=== PATIENT | female | born 1985 | race Caucasian/White ===

== ENCOUNTER 2017-04-19 10:57 | Emergency (ER) | payer OTHER ==
[~2017-04-19] VITALS: Ht 165.1 cm; Wt 106.6 kg
[~2017-04-19 10:57] MED LIST: METR500T1 PO; PSEU60TA51 PO
[2017-04-19 11:11] VITALS: BP 148/91
[2017-04-19 11:30] VITALS: BP 122/75
== END 2017-04-19 11:30 | disposition home or self-care (01) ==
LOC: MED 10:57
DX: B35.3 Tinea pedis (principal); F17.210 Nicotine dependence, cigarettes, uncomplicated; Z79.899 Other long term (current) drug therapy
CPT/HCPCS: 99282

== ENCOUNTER 2018-10-22 13:38 | Emergency (ER) | payer OTHER ==
[~2018-10-22] VITALS: Ht 165.1 cm; Wt 146.1 kg
--- NOTE | 2018-10-22 14:24 | NUR ---
PT AMBULATED TO ER BED 2
[2018-10-22 14:26] VITALS: BP 104/80
--- NOTE | 2018-10-22 14:35 | NUR ---
pt drove self from home for 3 day old coughs/sneeze,that worsened today.awaits er md/pa-c evaluations/assessments.laure hylton.
--- NOTE | 2018-10-22 15:25 | NUR ---
xray in progress.pt tolerated procedures with no incidents.aao,nad.still has cough fits at times.awaits test results,reevaluations.
--- NOTE | 2018-10-22 16:00 | NUR ---
ambulated to/from bathroom on her own with no problems.awaits reevaluations.laure hylton.
--- NOTE | 2018-10-22 16:29 | NUR ---
pt tolerated procedures with no incidents.upon er md reevaluations pt d/c'ed with rx's,instructions and to follow up with pmd/clinic for checkup further evaluations.ambulates on her own and states she understands instructions and will comply.return to nearest appropriate medical facility if conditions owrsens/emergencies.laure hylton.
[2018-10-22 16:31] VITALS: BP 154/87
== END 2018-10-22 16:29 | disposition home or self-care (01) ==
LOC: MED 13:38
DX: J11.1 Influenza due to unidentified influenza virus with other respiratory manifestations (principal); J44.9 Chronic obstructive pulmonary disease, unspecified
CPT/HCPCS: 71045; 99283; Q0092

== ENCOUNTER 2019-07-10 09:59 | Emergency (ER) | payer MEDICAID, OTHER ==
[~2019-07-10] VITALS: Ht 165.1 cm; Wt 125.6 kg
--- NOTE | 2019-07-10 10:03 | NUR ---
PATIENT AMBULATED STEADY GAIT TO BED 7
[2019-07-10 10:05] VITALS: BP 114/59
--- NOTE | 2019-07-10 10:11 | NUR ---
34/F BIB SELF C/O CONSTANT MID CHEST PRESSURE X LAST NIGHT. C/O NUMBNESS TO PTS L ARM AND NECK X 11 DAYS. DENIES COUGH OR DRUG ABUSE. ADMITS TO SMOKING CIGARRETTES HALF A PACK A DAY. PMH- COPD, FATIGUE. AAOX4 WITH EVEN AND STEADY GAIT; PATIENT STATES PAIN OF 8/10 AT THIS TIME. PATIENT POSITIONED FOR COMFORT; HOB ELEVATED; BEDRAILS UP X1; BED DOWN. ER MD MADE AWARE OF PT STATUS.
--- NOTE | 2019-07-10 10:27 | NUR ---
Patient being evaluated by DR BRUMFIELD at bedside.
[2019-07-10] MEDS ORDERED: ASPIRIN 325 MG TAB PO ONE (10:35)
[2019-07-10 11:04] LABS: BASOPHILS % (AUTO) 0.5 % (0.0-2.0); EOSINOPHILS # (AUTO) 0.1 K/uL (0-0.4); EOSINOPHILS % (AUTO) 1.2 % (0.0-4.0); HEMATOCRIT 38.5 % (36-48); HEMOGLOBIN 12.9 g/dL (12.0-16.0); LYMPHOCYTES # (AUTO) 1.4 K/uL (2.5-16.5); LYMPHOCYTES % (AUTO) 24.3 % (20.5-51.1); MEAN CORPUSCULAR HEMOGLOBIN 31 pg (27-31); MEAN CORPUSCULAR HGB CONC 34 g/dL (33-37); MEAN CORPUSCULAR VOLUME 93.1 fL (80-94); MONOCYTES # (AUTO) 0.3 K/uL (0.8-1.0); MONOCYTES % (AUTO) 4.4 % (1.7-9.3); NEUTROPHILS % (AUTO) 69.6 % (42.2-75.2); PLATELET COUNT (AUTO) 205 K/uL (140-450); RED BLOOD CELL COUNT(AUTO) 4.14 MIL/uL (4.20-5.40); RED CELL DISTRIBUTION WIDTH 14.7 % (11.6-13.7); WHITE BLOOD COUNT (AUTO) 5.7 K/uL (4.8-10.8)
[2019-07-10 11:17] LABS: CARBON DIOXIDE 27.8 mmol/L (21-32); CREATININE 0.7 mg/dL (0.6-1.3); POTASSIUM 3.8 mmol/L (3.5-5.1)
[2019-07-10 11:30] LABS: ALBUMIN 3.4 g/dL (3.4-5.0); TOTAL BILIRUBIN 0.3 mg/dL (0.0-1.0)
--- NOTE | 2019-07-10 11:35 | NUR ---
COVERING PRIMARY RN FOR LUNCH RELIEF, PT C/O L SIDED NUMBESS. DR BRUMFIELD AWARE. ORDERS FOR 1MG ATIVAN PO RECEIVED.
[2019-07-10] MEDS ORDERED: LORazepam 1 MG TAB PO ONE (11:45)
[2019-07-10 12:02] VITALS: BP 132/72
--- NOTE | 2019-07-10 12:03 | NUR ---
Patient discharged with v/s stable. Written and verbal after care instructions given and explained. Patient alert, oriented and verbalized understanding of instructions. Ambulatory with steady gait. All questions addressed prior to discharge. ID band removed. Patient advised to follow up with PMD. Rx of ATARAX given. Patient educated on indication of medication including possible reaction and side effects. Opportunity to ask questions provided and answered. IN LOBBY TO DRIVE PATIENT HOME. EDUCATED PT TO NOT DRIVE FOR AT LEAST 12 HRS.
== END 2019-07-10 12:03 | disposition home or self-care (01) ==
LOC: MED 09:59
DX: F41.9 Anxiety disorder, unspecified (principal); F17.210 Nicotine dependence, cigarettes, uncomplicated; J44.9 Chronic obstructive pulmonary disease, unspecified; Z72.0 Tobacco use
CPT/HCPCS: 36415; 71045; 80053; 81002; 81025; 84484; 85025; 93005; 99284; Q0092

== ENCOUNTER 2019-11-12 19:09 | Emergency (ER) | payer MEDICAID, OTHER ==
[~2019-11-12] VITALS: Ht 165.1 cm; Wt 124.7 kg
[2019-11-12 19:13] VITALS: BP 143/86
[2019-11-12 19:33] VITALS: BP 143/86
== END 2019-11-12 19:33 | disposition home or self-care (01) ==
LOC: MED 19:09
DX: H60.92 Unspecified otitis externa, left ear (principal); J44.9 Chronic obstructive pulmonary disease, unspecified; F17.210 Nicotine dependence, cigarettes, uncomplicated
CPT/HCPCS: 99283

== ENCOUNTER 2020-07-09 13:44 | Emergency (ER) | payer OTHER ==
[~2020-07-09] VITALS: Ht 165.1 cm; Wt 116.6 kg
[2020-07-09 14:44] VITALS: BP 150/57
--- NOTE | 2020-07-09 15:48 | NUR ---
PATIENT LEFT WITHOUT BEING SEEN BY DR. Corea. NO FURTHER CARE PROVIDED FOR PATIENT.
== END 2020-07-09 15:48 | disposition left against medical advice (07) ==
LOC: MED 13:44
DX: M54.9 Dorsalgia, unspecified (principal); M25.511 Pain in right shoulder; Z53.21 Procedure and treatment not carried out due to patient leaving prior to being seen by health care provider

== ENCOUNTER 2021-01-29 17:09 | Emergency (ER) | payer OTHER ==
[~2021-01-29] VITALS: Ht 165.1 cm; Wt 101.2 kg
[2021-01-29 17:16] VITALS: BP 73/45
[2021-01-29] MEDS ORDERED: traMADol 50 MG TAB PO ONE (17:30)
--- NOTE | 2021-01-29 17:40 | NUR ---
AMBULATED PT TO RM 7
--- NOTE | 2021-01-29 17:47 | NUR ---
PATIENT AMBULATED TO RESTROOM FOR COLLECTION OF URINE
[2021-01-29] MEDS ORDERED: IBUP-2218 PO (17:52)
[2021-01-29 18:01] VITALS: BP 139/80
== END 2021-01-29 18:01 | disposition home or self-care (01) ==
LOC: MED 17:09
DX: M54.5 Low back pain (principal); G89.29 Other chronic pain; J44.9 Chronic obstructive pulmonary disease, unspecified
CPT/HCPCS: 99283

== ENCOUNTER 2021-02-23 11:43 | Emergency (ER) | payer OTHER ==
[~2021-02-23] VITALS: Ht 162.6 cm; Wt 86.2 kg
[~2021-02-23 11:43] MED LIST changes: +IBUP-2218 PO; -METR500T1 PO; -PSEU60TA51 PO
--- NOTE | 2021-02-23 11:50 | NUR ---
moriah YANCEY via gurney to bed 08.
[2021-02-23 11:56] VITALS: BP 156/75
--- NOTE | 2021-02-23 12:05 | NUR ---
35 Y/O F BIBA, PT WAS FOUND SLEEPING ON FRONT LAWN, PT STATES SHE HAS BEEN DRINKING ALCOHOL ".12 ". PT IS DIAPHORETIC, A&OX3 TO NAME, LOCATION, AND TIME. PT SPEECH IS SLURRED, IS NOT ABLE TO AMBULATE WITHOUT ASSIST. A&OX4. EQUAL CHEST RISE AND FALL NOTED. NO LABORED BREATHING NOTED. BED IN LOWEST POSITION. SIDERAIL X2 UP. PMH: EOTH USE, ASTHMA, COPD NKA MED: DENIES
--- NOTE | 2021-02-23 12:08 | NUR ---
PT TOOK OFF GOWN AND MONITORING EQUIPEMENT AND RAN TO RESTROOM TOPLESS.
[2021-02-23 13:30] VITALS: BP 138/71
--- NOTE | 2021-02-23 13:43 | NUR ---
PT SLEEPING WITH EYES CLOSED. PT VITALS TAKEN, BUT UNABLE TO TAKEN BP DUE TO PT SLEEPING. BED IN LOWEST POSITION WITH SIDERAILS X2 UP AND LOCKED. WILL CONTINUE TO MONITOR PT
--- NOTE | 2021-02-23 14:30 | NUR ---
Patient discharged with v/s stable. Written and verbal after care instructions about alcohol use disorder given and explained. Patient verbalized understanding. Ambulatory with steady gait. All questions addressed prior to discharge. Advised to follow up with PMD.
== END 2021-02-23 14:30 | disposition home or self-care (01) ==
LOC: MED 11:43
DX: F10.129 Alcohol abuse with intoxication, unspecified (principal); J44.9 Chronic obstructive pulmonary disease, unspecified; Y90.9 Presence of alcohol in blood, level not specified
CPT/HCPCS: 99283

== ENCOUNTER 2021-08-17 12:24 | Emergency (ER) | payer OTHER ==
[~2021-08-17] VITALS: Ht 165.1 cm; Wt 119.7 kg
[2021-08-17 12:42] VITALS: BP 158/119
[2021-08-17] MEDS ORDERED: NAPR-54 PO (13:29)
--- NOTE | 2021-08-17 13:46 | NUR ---
NO COMPLETE ASSESSMENT NEEDED, NO NURSING INTERVENTIONS NEEDED.
[2021-08-17 13:47] VITALS: BP 138/86
--- NOTE | 2021-08-17 13:47 | NUR ---
Patient discharged with v/s stable. Written and verbal after care instructions given FOR HEEL SPUR and explained. Patient alert, oriented and verbalized understanding of instructions. Ambulatory with steady gait. All questions addressed prior to discharge. ID band removed. Patient advised to follow up with PMD. Rx of NAPROXEN given. Patient educated on indication of medication including possible reaction and side effects. Opportunity to ask questions provided and answered.
== END 2021-08-17 13:47 | disposition home or self-care (01) ==
LOC: MED 12:24
DX: M77.8 Other enthesopathies, not elsewhere classified (principal); J44.9 Chronic obstructive pulmonary disease, unspecified; Z79.899 Other long term (current) drug therapy
CPT/HCPCS: 73630; 99283

== ENCOUNTER 2021-09-10 07:28 | Emergency (ER) | payer OTHER ==
[~2021-09-10] VITALS: Ht 165.1 cm; Wt 117.0 kg
[~2021-09-10 07:28] MED LIST changes: +NAPR-54 PO
[2021-09-10 07:38] VITALS: BP 144/78
[2021-09-10] MEDS ORDERED: KETOROLAC 15 MG/ML VIAL IM ONE (07:55)
--- NOTE | 2021-09-10 08:01 | NUR ---
36/F BIB SELF WITH C/O RIGHT FOOT PAIN X1 MONTH. DENIES RECENT INJURY OR TRAUMA, STATES "I WORK ALOT." PATIENT DENIES TAKING ANYTHING FOR PAIN PRIOR TO ARRIVAL TO ED, NO DEFORMITY OR SWELLING NOTED
[2021-09-10 08:25] VITALS: BP 144/78
--- NOTE | 2021-09-10 08:25 | NUR ---
Patient discharged with v/s stable. Written and verbal after care instructions ABOUT FOOT PAIN given and explained. Patient verbalized understanding. Ambulatory with . All questions addressed prior to discharge. Advised to follow up with PMD.
== END 2021-09-10 08:25 | disposition home or self-care (01) ==
LOC: MED 07:28
DX: G89.29 Other chronic pain (principal); M79.671 Pain in right foot; J44.9 Chronic obstructive pulmonary disease, unspecified; F17.200 Nicotine dependence, unspecified, uncomplicated; Z79.899 Other long term (current) drug therapy; Z98.890 Other specified postprocedural states
CPT/HCPCS: 96372; 99283; J1885

== ENCOUNTER 2021-10-15 14:45 | Emergency (ER) | payer OTHER ==
[~2021-10-15] VITALS: Ht 165.1 cm; Wt 122.0 kg
[2021-10-15 15:01] VITALS: BP 136/77
[2021-10-15] MEDS ORDERED: TRAM50TA1 PO (15:25)
--- NOTE | 2021-10-15 15:35 | NUR ---
36/F PRESENTS TO ED WITH C/O RIGHT FOOT PAIN. STATES SHE WAS DX HERE WITH BONE SPURS LAST MONTH AND IS AWAITING TO SEE ORTHO NEXT MONTH BUT STATES PAIN IS WORSENING. REPORTS TAKING ALEVE WITH NO RELIEF, PATIENT AMBULATORY UPON ARRIVAL TO ED.
[2021-10-15 15:44] VITALS: BP 136/77
--- NOTE | 2021-10-15 15:44 | NUR ---
Patient discharged with v/s stable. Written and verbal after care instructions ABOUT HEEL SPUR given and explained. Patient alert, oriented and verbalized understanding of instructions. Ambulatory with steady gait. All questions addressed prior to discharge. ID band removed. Patient advised to follow up with PMD. Rx of ULTRAM given.
== END 2021-10-15 15:44 | disposition home or self-care (01) ==
LOC: MED 14:45
DX: M77.9 Enthesopathy, unspecified (principal); M79.671 Pain in right foot; J44.9 Chronic obstructive pulmonary disease, unspecified; Z79.899 Other long term (current) drug therapy
CPT/HCPCS: 99283

== ENCOUNTER 2021-11-28 15:05 | Emergency (ER) | payer OTHER ==
[~2021-11-28] VITALS: Ht 165.1 cm; Wt 122.5 kg
[~2021-11-28 15:05] MED LIST changes: +TRAM50TA1 PO
[2021-11-28 15:35] VITALS: BP 164/101
--- NOTE | 2021-11-28 15:53 | NUR ---
36 Y/O FEMALE BIB SELF, C/O SOB, STATED THEY TOOK THEIR INHALER BUT IT NEVER WORKS. LUNG SOUNDS CLEAR, NOTED WITH PRODUCTIVE COUGH PRODUCING A WHITISH EXUDATE. NKA PMH:COPD, ASTHMA
--- NOTE | 2021-11-28 15:53 | NUR ---
DR BURGOS AT BEDSIDE FOR EVAL
--- NOTE | 2021-11-28 15:53 | NUR ---
GIVEN APPLE JUICE AND CRACKERS, BLANKET FOR WARMTH
[2021-11-28] MEDS ORDERED: ALBUTEROL 0.083% 2.5 MG/3 ML NEBU INH ONE (16:00)
[2021-11-28] MEDS ORDERED: NACL 0.9% 1,000 ML IV ONE (16:00)
[2021-11-28] MEDS ORDERED: DEXAMETHASONE 10 MG/ML VIAL IVP ONE (16:00)
[2021-11-28 16:49] LABS: BASOPHILS # (AUTO) 0.1 K/uL (0.00-0.22); BASOPHILS % (AUTO) 1.2 % (0.0-2.0); EOSINOPHILS # (AUTO) 0.1 K/uL (0-0.4); EOSINOPHILS % (AUTO) 1.7 % (0.0-4.0); HEMATOCRIT 38.6 % (36-48); LYMPHOCYTES # (AUTO) 2.1 K/uL (2.5-16.5); LYMPHOCYTES % (AUTO) 30.9 % (20.5-51.1); MEAN CORPUSCULAR HEMOGLOBIN 32 pg (27-31); MEAN CORPUSCULAR HGB CONC 34 g/dL (33-37); MEAN CORPUSCULAR VOLUME 93.8 fL (80-94); MONOCYTES # (AUTO) 0.3 K/uL (0.8-1.0); MONOCYTES % (AUTO) 5.1 % (1.7-9.3); NEUTROPHILS # (AUTO) 4.1 K/uL (1.8-7.7); NEUTROPHILS % (AUTO) 61.1 % (42.2-75.2); PLATELET COUNT (AUTO) 222 K/uL (140-450); RED BLOOD CELL COUNT(AUTO) 4.12 MIL/uL (4.20-5.40); RED CELL DISTRIBUTION WIDTH 13.3 % (11.6-13.7); WHITE BLOOD COUNT (AUTO) 6.7 K/uL (4.8-10.8)
[2021-11-28 17:11] LABS: ALBUMIN 3.4 g/dL (3.4-5.0); ANION GAP 10.3 (8-16); CARBON DIOXIDE 29.5 mmol/L (21-32); CREATININE 1.1 mg/dL (0.6-1.3); POTASSIUM 3.8 mmol/L (3.5-5.1); TOTAL BILIRUBIN 0.2 mg/dL (0.0-1.0)
--- NOTE | 2021-11-28 17:12 | NUR ---
RAD AT BEDSIDE
[2021-11-28 17:43] VITALS: BP 107/60
[2021-11-28] MEDS ORDERED: ROBAC PO (17:47)
--- NOTE | 2021-11-28 17:55 | NUR ---
Patient discharged with v/s stable. Written and verbal after care instructions ABOUT ASTHMA/COPD given and explained. Patient alert, oriented and verbalized understanding of instructions. Ambulatory with steady gait. All questions addressed prior to discharge. ID band removed. Patient advised to follow up with PMD. Rx of GUAIFENESSIN-CODEINE given. Patient educated on indication of medication including possible reaction and side effects. Opportunity to ask questions provided and answered.
== END 2021-11-28 17:55 | disposition home or self-care (01) ==
LOC: MED 15:05
DX: J44.1 Chronic obstructive pulmonary disease with (acute) exacerbation (principal)
CPT/HCPCS: 36415; 71045; 80053; 85025; 94640; 96361; 96374; 99284; J1100; J7030; J7613; Q0092

== ENCOUNTER 2022-02-15 09:01 | Emergency (ER) | payer OTHER ==
[~2022-02-15] VITALS: Ht 165.1 cm; Wt 122.0 kg
[~2022-02-15 09:01] MED LIST changes: +ROBAC PO
[2022-02-15 09:07] VITALS: BP 86/63
--- NOTE | 2022-02-15 09:15 | NUR ---
36 Y/O FEMALE C/O OF COUGH, RUNNY NOSE, BODY ACHES X3DAYS. OTHER SON AT HOME SICK WITH SIMILAR SYMPTOMS. MOM HAS BEEN USING INHALER AT HOME TO HELP WITH HER COUGH. DENIES SOB, CHEST PAIN AND N/V/D. A&OX4, SKIN INTACT, NO SIGNS OF RESPIRATORY DISTRESS AT THIS TIME, VITALS WNL FOR PT AND STEADY GAIT. NKA PMH: COPD, ASTHMA
[2022-02-15] MEDS ORDERED: IBUP-2213 PO (11:08)
[2022-02-15] MEDS ORDERED: KETOROLAC 30 MG/ML VIAL IM ONE (11:10)
[2022-02-15] MEDS ORDERED: ALBU0.0912 IH (11:12)
[2022-02-15] MEDS ORDERED: ATRMDI INH (11:12)
[2022-02-15 11:57] VITALS: BP 143/78
--- NOTE | 2022-02-15 12:00 | NUR ---
Patient discharged with v/s stable. Written and verbal after care instructions given and explained. Patient alert, oriented and verbalized understanding of instructions. Ambulatory with steady gait. All questions addressed prior to discharge. ID band removed. Patient advised to follow up with PMD. Rx of IBUPROFEN, ATROVENT HFA MDI, AND PROVENTIL HFA MDI given. Patient educated on indication of medication including possible reaction and side effects. Opportunity to ask questions provided and answered.
== END 2022-02-15 12:00 | disposition home or self-care (01) ==
LOC: MED 09:01
DX: U07.1 COVID-19 (principal); J45.909 Unspecified asthma, uncomplicated; J44.9 Chronic obstructive pulmonary disease, unspecified
CPT/HCPCS: 87426; 87804; 96372; 99283; J1885

== ENCOUNTER 2022-12-04 20:10 | Emergency (ER) | payer OTHER ==
[~2022-12-04] VITALS: Ht 165.1 cm; Wt 106.1 kg
[~2022-12-04 20:10] MED LIST changes: +ALBU0.0912 IH; +ATRMDI INH; +IBUP-2213 PO; +TRAM-748 PO; -TRAM50TA1 PO
[2022-12-04 20:16] VITALS: BP 143/68
--- NOTE | 2022-12-04 20:16 | NUR ---
to bed ambulatory
--- NOTE | 2022-12-04 20:18 | NUR ---
Patient BIB by friend from home. C/O chest pain x today. Patient reported, had spider bite, then chest pain, back pain, abdominal pain. Patient resented restless, moving around and yelling for help. PMHx: Asthma, COPD
--- NOTE | 2022-12-04 20:28 | NUR ---
Dr. Lima examining patient.
[2022-12-04] MEDS ORDERED: LORazepam 2 MG/ML VIAL IM ONE (20:35)
[2022-12-04 20:49] LABS: BASOPHILS % (AUTO) 0.5 % (0.0-2.0); EOSINOPHILS # (AUTO) 0.2 K/uL (0-0.4); EOSINOPHILS % (AUTO) 1.7 % (0.0-4.0); HEMATOCRIT 39.6 % (36-48); HEMOGLOBIN 13.8 g/dL (12.0-16.0); LYMPHOCYTES # (AUTO) 1.5 K/uL (2.5-16.5); MEAN CORPUSCULAR HEMOGLOBIN 32 pg (27-31); MEAN CORPUSCULAR HGB CONC 35 g/dL (33-37); MEAN CORPUSCULAR VOLUME 90.8 fL (80-94); MONOCYTES # (AUTO) 0.3 K/uL (0.8-1.0); MONOCYTES % (AUTO) 3.6 % (1.7-9.3); NEUTROPHILS # (AUTO) 6.8 K/uL (1.8-7.7); NEUTROPHILS % (AUTO) 77.2 % (42.2-75.2); PLATELET COUNT (AUTO) 229 K/uL (140-450); RED BLOOD CELL COUNT(AUTO) 4.37 MIL/uL (4.20-5.40); RED CELL DISTRIBUTION WIDTH 13.3 % (11.6-13.7); WHITE BLOOD COUNT (AUTO) 8.8 K/uL (4.8-10.8)
[2022-12-04 21:06] LABS: ALBUMIN 3.6 g/dL (3.4-5.0); CARBON DIOXIDE 27.5 mmol/L (21-32); CREATININE 0.8 mg/dL (0.6-1.3); POTASSIUM 3.5 mmol/L (3.5-5.1); TOTAL BILIRUBIN 0.3 mg/dL (0.0-1.0)
[2022-12-04] MEDS ORDERED: ONDANSETRON 4 MG/2 ML VIAL IM ONE (21:15)
--- NOTE | 2022-12-04 21:17 | NUR ---
Patient screaming and states " I have back pain, help me , help me", Dr. Lima notified.
[2022-12-04] MEDS ORDERED: HALOPERIDOL IM 5 MG/ML VIAL IM ONE (21:20)
[2022-12-04] MEDS ORDERED: HALOPERIDOL IM 5 MG/ML VIAL ONE (21:23)
--- NOTE | 2022-12-04 21:44 | NUR ---
X-Ray at bedside.
--- NOTE | 2022-12-04 21:59 | NUR ---
Patient appears to be resting comfortably in bed. Vital Signs within normal limits. Respirations even and unlabored.
[2022-12-04 22:28] LABS: ACETAMINOPHEN < 0.5 ug/ml (10-30); SALICYLATE < 2.8 mg/dL (2.8-20.0)
--- NOTE | 2022-12-04 22:57 | NUR ---
Patient appears to be resting comfortably in bed. Vital Signs within normal limits. Respirations even and unlabored.
--- NOTE | 2022-12-05 00:58 | NUR ---
Patient closed her eyes, Patient appears to be resting comfortably in bed.
--- NOTE | 2022-12-05 03:11 | NUR ---
Patient closed her eyes, Patient appears to be resting comfortably in bed.
--- NOTE | 2022-12-05 04:29 | NUR ---
Dr. Potts examining patient.
[2022-12-05 05:02] VITALS: BP 155/76
--- NOTE | 2022-12-05 05:02 | NUR ---
Patient discharged with v/s stable. Written and verbal after care instructions given and explained. Patient verbalized understanding. Ambulatory with steady gait. All questions addressed prior to discharge. Advised to follow up with PMD.
--- NOTE | 2022-12-05 05:04 | NUR ---
Called warehouse foreman for [employer].
== END 2022-12-05 05:02 | disposition home or self-care (01) ==
LOC: MED 20:10
DX: R41.82 Altered mental status, unspecified (principal); R07.9 Chest pain, unspecified; J45.909 Unspecified asthma, uncomplicated; J44.9 Chronic obstructive pulmonary disease, unspecified; Z79.899 Other long term (current) drug therapy
CPT/HCPCS: 36415; 71045; 80053; 83880; 84484; 85025; 93005; 96372; 99285; G0480; G0482; J1630; J2060; J2405; Q0092

== ENCOUNTER 2022-12-25 12:02 | Emergency (ER) | payer OTHER ==
[~2022-12-25] VITALS: Ht 165.1 cm; Wt 110.4 kg
[2022-12-25 12:11] VITALS: BP 121/75
[2022-12-25] MEDS ORDERED: BACTO TP (12:41)
[2022-12-25] MEDS ORDERED: IBUP-2213 PO (12:41)
[2022-12-25] MEDS ORDERED: SULF-59 PO (12:49)
[2022-12-25 13:07] VITALS: BP 121/75
--- NOTE | 2022-12-25 13:07 | NUR ---
Patient discharged with v/s stable. Written and verbal after care instructions given and explained. Patient alert, oriented and verbalized understanding of instructions. Ambulatory with steady gait. All questions addressed prior to discharge. ID band removed. Patient advised to follow up with PMD. Rx of IBUPROFEN, BACTROBAN (SENT) given. Patient educated on indication of medication including possible reaction and side effects. Opportunity to ask questions provided and answered.
== END 2022-12-25 13:07 | disposition home or self-care (01) ==
LOC: MED 12:02
DX: S31.139A Puncture wound of abdominal wall without foreign body, unspecified quadrant without penetration into peritoneal cavity, initial encounter (principal); J45.909 Unspecified asthma, uncomplicated; J44.9 Chronic obstructive pulmonary disease, unspecified; F17.210 Nicotine dependence, cigarettes, uncomplicated; Z72.89 Other problems related to lifestyle; W57.XXXA Bitten or stung by nonvenomous insect and other nonvenomous arthropods, initial encounter; Y93.89 Activity, other specified; Y92.89 Other specified places as the place of occurrence of the external cause; Y99.8 Other external cause status
CPT/HCPCS: 99283

== ENCOUNTER 2023-05-23 17:04 | Emergency (ER) | payer OTHER ==
[~2023-05-23] VITALS: Ht 165.1 cm; Wt 110.7 kg
[~2023-05-23 17:04] MED LIST changes: +BACTO TP; +SULF-59 PO
[2023-05-23 18:15] VITALS: BP 135/66; PULSE 77; RESP 22; TEMP 97; O2SAT 100
[2023-05-23 19:16] LABS: BASOPHILS # (AUTO) 0.1 K/uL (0.00-0.22); BASOPHILS % (AUTO) 0.9 % (0.0-2.0); EOSINOPHILS # (AUTO) 0.2 K/uL (0-0.4); EOSINOPHILS % (AUTO) 2.4 % (0.0-4.0); HEMATOCRIT 38.4 % (36-48); HEMOGLOBIN 13.1 g/dL (12.0-16.0); LYMPHOCYTES # (AUTO) 1.6 K/uL (2.5-16.5); LYMPHOCYTES % (AUTO) 22.2 % (20.5-51.1); MEAN CORPUSCULAR HEMOGLOBIN 32 pg (27-31); MEAN CORPUSCULAR HGB CONC 34 g/dL (33-37); MEAN CORPUSCULAR VOLUME 93.5 fL (80-94); MONOCYTES # (AUTO) 0.2 K/uL (0.8-1.0); MONOCYTES % (AUTO) 3.3 % (1.7-9.3); NEUTROPHILS # (AUTO) 5.2 K/uL (1.8-7.7); NEUTROPHILS % (AUTO) 71.2 % (42.2-75.2); PLATELET COUNT (AUTO) 220 K/uL (140-450); RED CELL DISTRIBUTION WIDTH 13.6 % (11.6-13.7); WHITE BLOOD COUNT (AUTO) 7.2 K/uL (4.8-10.8)
[2023-05-23 19:29] LABS: ALBUMIN 3.9 g/dL (3.4-5.0); ANION GAP 12.2 (8-16); CALCIUM 8.7 mg/dL (8.5-10.1); CARBON DIOXIDE 29.6 mmol/L (21-32); CREATININE 0.8 mg/dL (0.6-1.3); POTASSIUM 3.8 mmol/L (3.5-5.1); TOTAL BILIRUBIN 0.2 mg/dL (0.0-1.0); TOTAL PROTEIN, SERUM 7.4 g/dL (6.4-8.2)
[2023-05-23 19:46] LABS: APPEARANCE,URINE CLEAR (CLEAR); BILIRUBIN,URINE NEGATIVE (NEGATIVE); BLOOD, URINE NEGATIVE (NEGATIVE); COLOR,URINE YELLOW (YELLOW); LEUKOCYTE ESTERASE ,URINE NEGATIVE (NEGATIVE); NITRITE, URINE NEGATIVE (NEGATIVE); PROTEIN,URINE NEGATIVE (NEGATIVE); UGLUCOSE NEGATIVE (NEGATIVE); UROBILINOGEN,URINE 0.2 EU/dL (0.2 - 1)
[2023-05-23] MEDS ORDERED: ACET-10509 PO (20:26)
[2023-05-23 21:10] VITALS: BP 135/66; PULSE 77; RESP 22; TEMP 97; O2SAT 100
[2023-05-23] MEDS ORDERED: NEBU1EAC30 MC (22:09)
[2023-05-23] MEDS ORDERED: PRON INH (22:09)
== END 2023-05-23 21:10 | disposition home or self-care (01) ==
LOC: MED 17:04
DX: R10.9 Unspecified abdominal pain (principal); N93.9 Abnormal uterine and vaginal bleeding, unspecified; J44.9 Chronic obstructive pulmonary disease, unspecified; Z79.899 Other long term (current) drug therapy; Z79.2 Long term (current) use of antibiotics; Z79.1 Long term (current) use of non-steroidal anti-inflammatories (NSAID)
CPT/HCPCS: 36415; 80053; 81003; 81025; 83690; 85025; 99283

== ENCOUNTER 2023-05-23 21:43 | Emergency (ER) | payer OTHER ==
[~2023-05-23 21:43] MED LIST changes: +ACET-10509 PO
[2023-05-23] MEDS ORDERED: NEBU1EAC30 MC (22:09)
[2023-05-23] MEDS ORDERED: PRON INH (22:09)
== END 2023-05-23 22:00 | disposition left against medical advice (07) ==
LOC: MED 21:43
DX: Z53.21 Procedure and treatment not carried out due to patient leaving prior to being seen by health care provider (principal)

== ENCOUNTER 2023-12-17 18:03 | Emergency (ER) | payer OTHER ==
[~2023-12-17] VITALS: Ht 165.1 cm; Wt 104.3 kg
[~2023-12-17 18:03] MED LIST changes: +NAPR-337 PO; -NAPR-54 PO; +NEBU1EAC30 MC; +PRON INH
[2023-12-17 18:21] VITALS: BP 103/71; PULSE 99; RESP 20; TEMP 97.5; O2SAT 99
[2023-12-17 18:45] VITALS: TEMP 97.5; O2SAT 99
[2023-12-17] MEDS: ACETAMINOPHEN EXTRA STRENGTH 500 MG TAB PO ONE (19:14)
[2023-12-17 19:41] LABS: BASOPHILS % (AUTO) 0.5 % (0.0-2.0); EOSINOPHILS # (AUTO) 0.2 K/uL (0-0.4); EOSINOPHILS % (AUTO) 3.3 % (0.0-4.0); HEMATOCRIT 34.9 % (36-48); HEMOGLOBIN 12.2 g/dL (12.0-16.0); LYMPHOCYTES # (AUTO) 1.6 K/uL (2.5-16.5); MEAN CORPUSCULAR HEMOGLOBIN 32 pg (27-31); MEAN CORPUSCULAR HGB CONC 35 g/dL (33-37); MEAN CORPUSCULAR VOLUME 92.5 fL (80-94); MONOCYTES # (AUTO) 0.3 K/uL (0.8-1.0); MONOCYTES % (AUTO) 4.8 % (1.7-9.3); NEUTROPHILS # (AUTO) 3.7 K/uL (1.8-7.7); NEUTROPHILS % (AUTO) 63.4 % (42.2-75.2); PLATELET COUNT (AUTO) 227 K/uL (140-450); RED BLOOD CELL COUNT(AUTO) 3.77 MIL/uL (4.20-5.40); RED CELL DISTRIBUTION WIDTH 13.1 % (11.6-13.7); WHITE BLOOD COUNT (AUTO) 5.9 K/uL (4.8-10.8)
[2023-12-17 19:51] LABS: ANION GAP 10.9 (8-16); CALCIUM 8.5 mg/dL (8.5-10.1); CARBON DIOXIDE 29.9 mmol/L (21-32); POTASSIUM 3.8 mmol/L (3.5-5.1)
[2023-12-17] MEDS: ALBUTEROL SULFATE/IPRATROPIU 3 ML SOL IH ONE (20:05)
[2023-12-17 20:06] VITALS: PULSE 84; RESP 18; O2SAT 94
[2023-12-17] MEDS ORDERED: PRED20TA5 PO (20:43)
[2023-12-17] MEDS ORDERED: ALBU0.0912 IH (20:43)
[2023-12-17 21:00] VITALS: BP 117/52; PULSE 89; RESP 16; O2SAT 98
== END 2023-12-17 21:00 | disposition home or self-care (01) ==
LOC: MED 18:03
DX: J44.1 Chronic obstructive pulmonary disease with (acute) exacerbation (principal); J45.909 Unspecified asthma, uncomplicated; F32.A Depression, unspecified; F41.9 Anxiety disorder, unspecified; F17.200 Nicotine dependence, unspecified, uncomplicated; Z76.0 Encounter for issue of repeat prescription; Z79.899 Other long term (current) drug therapy
CPT/HCPCS: 36415; 71045; 80048; 84484; 85025; 93005; 94640; 99285; Q0092

== ENCOUNTER 2024-01-05 16:21 | Emergency (ER) | payer OTHER ==
[~2024-01-05] VITALS: Ht 166.4 cm; Wt 110.7 kg
[~2024-01-05 16:21] MED LIST changes: +PRED20TA5 PO
[2024-01-05 16:46] VITALS: BP 128/66; PULSE 94; RESP 18; TEMP 97.9; O2SAT 98
[2024-01-05] MEDS: predniSONE 20 MG TAB PO ONE (17:33)
[2024-01-05] MEDS: LORATADINE 10 MG TAB PO ONE (17:33)
[2024-01-05] MEDS ORDERED: PRED20TA5 PO (17:34)
[2024-01-05] MEDS ORDERED: LORA-1047 PO (17:34)
== END 2024-01-05 17:56 | disposition home or self-care (01) ==
LOC: MED 16:21
DX: R21 Rash and other nonspecific skin eruption (principal); J45.909 Unspecified asthma, uncomplicated; J44.9 Chronic obstructive pulmonary disease, unspecified; Z79.899 Other long term (current) drug therapy
CPT/HCPCS: 99283; J7512